=== PATIENT | male | born 2000 | race Two or more races ===

== ENCOUNTER 2024-05-26 12:02 | Emergency (ER) | payer MEDICAID, SELFPAY ==
[2024-05-26 12:04] VITALS: BMI 30.4
[2024-05-26 12:12] VITALS: BP 153/95; PULSE 95; RESP 18; TEMP 36.7; O2SAT 96
--- NOTE | 2024-05-26 12:21 | PD.EDRME ---
Rapid Medical Screening Exam RME Arrival date/time: 05/26/24 12:02 23-year-old male everyday drinker presents to the Emergency Department today stating he has left-sided rib and abdominal pain Chief Complaint: General Adult/Misc Complain Vital signs: Vital Signs Temperature 98.1 F 05/26/24 12:12 Pulse Rate 95 05/26/24 12:12 Respiratory Rate 18 05/26/24 12:12 Blood Pressure 153/95 H 05/26/24 12:12 Pulse Oximetry (%) 96 05/26/24 12:12 Oxygen Delivery Method Room Air 05/26/24 12:12
--- NOTE | 2024-05-26 12:22 | EKG_ITS ---
[facility] Test Date: 2024-05-26 Pat Name: KELLIE WRIGHT Department: Room: - Gender: Male [employer]ation Systems Outreach Specialist: : 2000 Requested By: Bill Hernandez (INDERJIT) Order Number: [id number] Reading MD: Bill Hernandez (EVENT STAFF) Measurements Intervals [place] Rate: 75 P: 35 IN: 143 QRS: 77 QRSD: 85 T: 53 QT: 358 QTc: 401 Interpretive Statements SINUS RHYTHM WITH SINUS ARRHYTHMIA Compared to ECG 07/29/2023 08:21:06 Sinus tachycardia no longer present Short IN interval no longer present /store/S0/[id number].pdf
--- NOTE | 2024-05-26 12:22 | XR_ITS ---
Examination: Upright PA lateral chest 2 views TECHNIQUE: Upright PA lateral chest 2 views Exam date and time: May 26, 2024 1233 hours Comparison March 20, 2023 INDICATIONS: Chest pain today FINDINGS: Normal heart size. Lungs are clear. The osseous structures are intact IMPRESSION: No active disease
--- NOTE | 2024-05-26 12:40 | PD.EDRME ---
Rapid Medical Screening Exam RME Arrival date/time: 05/26/24 12:02 05/26/24 12:02 23-year-old male everyday drinker presents to the Emergency Department today stating he has left-sided rib and abdominal pain Chief Complaint: General Adult/Misc Complain Time Seen by Provider: 05/26/24 13:27 Vital signs: Vital Signs Temperature 98.1 F 05/26/24 12:12 Pulse Rate 95 05/26/24 12:12 Respiratory Rate 18 05/26/24 12:12 Blood Pressure 153/95 H 05/26/24 12:12 Pulse Oximetry (%) 96 05/26/24 12:12 Oxygen Delivery Method Room Air 05/26/24 12:12 RME Narrative: 05/26/24 12:02 23-year-old male everyday drinker presents to the Emergency Department today stating he has left-sided rib and abdominal pain
[2024-05-26 12:49] LABS: Basophils # (Auto) 0.1 Thou/mm3 (0.0-0.2); Basophils % (Auto) 1 % (0-2.5); Eosinophils # (Auto) 0.9 Thou/mm3 (0.0-0.5); Eosinophils % (Auto) 11 % (0-10); Immature Granulocytes % (Auto) 0 % (0-0); Immature Granulocytes Auto 0.03 Thou/mm3 (0.00-0.00); Lymphocytes # (Auto) 1.7 Thou/mm3 (1.0-4.8); Lymphocytes % (Auto) 21 % (10-50); Mean Corpuscular HGB Conc 33.3 g/dl (31.0-37.0); Mean Corpuscular Hemoglobin 28.2 pg (25.0-35.0); Mean Corpuscular Volume 85 fL (80-100); Monocytes # (Auto) 0.6 Thou/mm3 (0.0-0.8); Monocytes % (Auto) 8 % (0-12); Neutrophils # (Auto) 4.9 Thou/mm3 (1.8-7.7); Neutrophils % (Auto) 60 % (37-80); Nucleated Red Blood Cell % 0 /100 WBC (0); Platelet Count 254 Thou/mm3 (140-440); RDW Standard Deviation 44.9 fL (35.1-43.9); Red Blood Count 5.32 Miln/mm3 (4.50-5.90); White Blood Count 8.2 Thou/mm3 (3.8-10.6)
[2024-05-26 13:09] LABS: Alanine Aminotransferase 137 U/L (10-49); Albumin, Serum 5.2 gm/dL (3.5-5.0); Albumin/Globulin Ratio 1.7 (1.2-2.2); Alcohol, Blood Medical 18.2 mg/dL (0-10.0); Alkaline Phosphatase 107 U/L (46-116); Anion Gap 12 (7-16); Aspartate Amino Transferase 81 U/L (0-34); BUN/Creatinine Ratio 7 Ratio (12-20); Bilirubin,Total 0.6 mg/dL (0.3-1.2); Blood Urea Nitrogen 6 mg/dL (9-23); Calcium 9.8 mg/dL (8.3-10.6); Calcium (Corrected) 9.8 mg/dL (8.5-10.1); Carbon Dioxide 23.3 mMol/L (20.0-31.0); Chloride 105 mMol/L (98-107); Creatinine (Component) 0.9 mg/dL (0.6-1.3); Estimated Creatinine Clearance 138.4 mL/min (>60); Globulin 3.1 gm/dL (2.3-3.5); Glucose 119 mg/dL (74-106); Lipase 39 U/L (12-53); Osmolality,Calculated 278 (275-295); Potassium 4.1 mMol/L (3.4-5.1); Sodium 140 mMol/L (136-145); Total Protein 8.3 gm/dL (5.7-8.2); Troponin I < 0.002 ng/mL (0.0-0.045); eGFR > 60 See Note
--- NOTE | 2024-05-26 13:27 | EDNOTE_ITS ---
<Statement entered by Marli Duran MD - 06/02/24 06:24> As co-signing physician, I was present and available for consult prn. I concur with the plan and care as documented by the midlevel provider. ED General RME/HPI General Chief complaint: General Adult/Misc Complain Stated complaint: LEFT RIB PAIN WOSRE WITH INSPIRATION X1WK Time Seen by Provider: 05/26/24 13:27 Arrival date/time: 05/26/24 12:02 23-year-old male everyday drinker presents to the Emergency Department today stating he has left-sided rib and abdominal pain x 1 week Limitations: no limitations RME / HPI RME / HPI narrative: 05/26/24 12:02 23-year-old male everyday drinker presents to the Emergency Department today stating he has left-sided rib and abdominal pain Related Data Previous Rx's ?Medication ?Instructions ?Recorded albuterol sulfate 90 mcg/actuation 2 puff inhalation Q ID PRN 01/29/22 aerosol inhaler shortness of breath or wheez ing #8.5 grams codeine 10 mg-guaifenesin 100 mg/5 5 ml PO Q6H PRN cou gh #118 mL 01/29/22 mL oral liquid (Guaifenesin AC) benzonatate 100 mg capsule 100 mg PO TID #20 caps 08/17 Allergies Allergy/AdvReac Type Severity Reaction Status Date / Time No Known Allergies Allergy Verified 05/26/24 12:06 Review of Systems Review of Systems Systems Reviewed: All systems reviewed, normal except as documented Constitutional Constitutional: Reports system reviewed and no additional complaints, except as documented, Denies fever(s) and Denies headache(s) Eyes Eyes: Reports system reviewed and no additional complaints, except as documented and Denies blurry vision ENT Ears, Nose, Mouth, and Throat: Reports system reviewed and no additional complaints, except as documented, Denies headache(s), Denies nasal congestion and Denies nasal discharge Cardiovascular Cardiovascular: Reports system reviewed and no additional complaints, except as documented, Denies chest pain and Denies dyspnea Respiratory Respiratory: Reports system reviewed and no additional complaints, except as documented, Denies chest congestion, Denies cough and Denies dyspnea Gastrointestinal Gastrointestinal: Reports system reviewed and no additional complaints, except as documented and Denies abdominal pain Musculoskeletal Musculoskeletal: Reports system reviewed and no additional complaints, except as documented and Reports other (Left-sided rib pain) Integumentary/Breasts Skin/Breast: Reports system reviewed and no additional complaints, except as documented and Denies rash Neurologic Neurologic: Reports system reviewed and no additional complaints, except as documented, Reports as per HPI and Denies headache(s) Psychiatric Psychiatric: Reports system reviewed and no additional complaints, except as documented and Reports anxiety Past Medical History Past Medical History NEUROLOGIC: Negative Neurological Disorders CARDIAC: Negative Cardiac Disorders ED Exam General Limitations: Present no limitations General appearance: Present alert and in no apparent distress Head Head exam: Present atraumatic Eye Eye exam: Present normal appearance, PERRL and EOMI ENT ENT exam: Present normal exam, normal oropharynx and mucous membranes moist Neck Neck exam: Present normal inspection, full ROM and trachea midline Chest Chest inspection: Present normal inspection and symmetric chest wall rise Respiratory Respiratory exam: Present normal lung sounds bilaterally Cardiovascular Cardiovascular exam: Present regular rate, normal rhythm and normal heart sounds Abdominal Exam Abdominal exam: Present soft and normal bowel sounds Extremities Exam Extremities exam: Present normal inspection and full ROM Back Exam Back exam: Present normal inspection and full ROM Neurological Exam Neurological exam: Present alert, oriented X3 and CN II-XII intact Psychiatric Psychiatric exam: Present normal affect and normal mood Skin Skin exam: Present warm, dry, intact and normal color Course Quality Measures none Orders Category Date Time Status EKG (ED ONLY) *Do not use* NOW Care 05/26/24 12:22 Completed EKG (ED Only) Stat Exams 05/26/24 12:22 Draft XR chest 2V Stat Exams 05/26/24 12:22 Completed Alcohol, Blood Medical Stat Lab 05/26/24 12:32 Completed CBC Stat Lab 05/26/24 12:32 Completed Comprehensive Metabolic Panel Stat Lab 05/26/24 12:32 Completed Lipase Stat Lab 05/26/24 12:32 Completed Troponin I Stat Lab 05/26/24 12:32 Completed Vital Signs Vital signs: Vital Signs Temperature 98.1 F 05/26/24 12:12 Pulse Rate 95 05/26/24 12:12 Respiratory Rate 18 05/26/24 12:12 Blood Pressure 153/95 H 05/26/24 12:12 Pulse Oximetry (%) 96 05/26/24 12:12 Oxygen Delivery Method Room Air 05/26/24 12:12 O2 saturation 96% room air within normal limits Procedures -ED EKG Interpretation #1: Date of EK05/26/24 Time of EK:26 Rate: 75 Interpretation: Interpreted by me EKG Impression: Normal sinus rhythm, No acute ST-T changes, No ectopy, Sinus arrhythmia, No ischemic changes, Normal QRS and Normal intervals MDM Patient data External records reviewed:: [facility] previous records Clinical information provided by:: patient Social determinants that could affect healthcare access:: alcohol use Patient has the following chronic illnesses:: Alcohol use How is presenting disease/condition affected by chronic disease/condition?: e xacerbated by Evaluation data The following diagnostics were reviewed and interpreted by me:: lab results, radiology exam(s) and EKG tracing(s) Lab and/or radiology exams considered but not ordered:: Labs, radiology, EKG obtained Interpretation Summary: Reviewed by me Medications Medications considered but not ordered:: Given Medication administrations:: Given Consultations Consultation(s) initiated? (list below): No Diagnosis Differential Diagnosis ED Complaint MDM: Anxiety, stress reaction, abdominal pain, alcohol abuse Most likely diagnosis given after review of the tests above:: Abdominal pain, chest wall pain, anxiety Admission Indicated Admission indicated?: not indicated Explain why admission is indicated or not indicated:: No criteria Admission Request Was there a request for admission?: No Disposition Plan Disposition Plan: Discharge Discharge Attestation Discharge Attestation: The patient and all family members were given an opportunity to ask questions and understood the discharge instructions. Discharge instructions specifically effects, indications for sooner follow up or return to the emergency department, and the expected course of current diagnosis. Patient condition: Stable Medical Decision Making [facility] Narrative MDM Narrative: 23-year-old male everyday drinker presents to the Emergency Department today stating he has left-sided rib and abdominal pain x 1 week On exam patient well-appearing patient's not appear ill or toxic patient does appear to be a bit anxious Lab work and imaging obtained no acute emergent findings noted Chest x-ray obtained no acute pneumonic infiltrates no acute pulmonary process EKG Differential Diagnosis Differential Diagnosis: Anxiety, stress reaction, abdominal pain, alcohol abuse Medical Records Medical records reviewed: Yes I reviewed the patient's medical records. Lab Data Lab results reviewed: Yes I reviewed the patient's lab results. 05/26/24 12:32 05/26/24 12:32 Labs: Lab Results 05/26/24 Range/Units 12:32 WBC 8.2 (3.8-10.6) Thou/mm3 RBC 5.32 (4.50-5.90) Miln/mm3 Hgb 15.0 (13.5-16.0) g/dL Hct 45.0 (41.0-53.0) % MCV 85 (80-100) fL MCH 28.2 (25.0-35.0) pg MCHC 33.3 (31.0-37.0) g/dl RDW Std Deviation 44.9 H (35.1-43.9) fL Plt Count 254 (140-440) Thou/mm3 Neut % (Auto) 60 (37-80) % Lymph % (Auto) 21 (10-50) % [place] % (Auto) 8 (0-12) % Eos % (Auto) 11 H (0-10) % Baso % (Auto) 1 (0-2.5) % Neut # (Auto) 4.9 (1.8-7.7) Thou/mm3 Lymph # (Auto) 1.7 (1.0-4.8) Thou/mm3 [place] # (Auto) 0.6 (0.0-0.8) Thou/mm3 Eos # (Auto) 0.9 H (0.0-0.5) Thou/mm3 Baso # (Auto) 0.1 (0.0-0.2) Thou/mm3 Immature Gran # (Auto) 0.03 H (0.00-0.00) Thou/mm3 Absolute Nucleated RBC 0.00 (0.00-0.00) Thou/mm3 Immature Gran % 0 (0-0) % Nucleated RBC % 0 (0) /100 WBC Sodium 140 (136-145) mMol/L Potassium 4.1 (3.4-5.1) mMol/L Chloride 105 (98-107) mMol/L Carbon Dioxide 23.3 (20.0-31.0) mMol/L Anion Gap 12 (7-16) BUN 6 L (9-23) mg/dL Creatinine 0.9 (0.6-1.3) mg/dL Estim Creat Clear Calc 138.4 (>60) mL/min eGFR > 60 (60 - ) See Note BUN/Creatinine Ratio 7 L (12-20) Ratio Glucose 119 H (74-106) mg/dL Calculated Osmolality 278 (275-295) Calcium 9.8 (8.3-10.6) mg/dL Corrected Calcium 9.8 (8.5-10.1) mg/dL Total Bilirubin 0.6 (0.3-1.2) mg/dL AST 81 H (0-34) U/L ALT 137 H (10-49) U/L Alkaline Phosphatase 107 (46-116) U/L Troponin I < 0.002 (0.0-0.045) ng/mL Total Protein 8.3 H (5.7-8.2) gm/dL Albumin 5.2 H (3.5-5.0) gm/dL Globulin 3.1 (2.3-3.5) gm/dL Albumin/Globulin Ratio 1.7 (1.2-2.2) Lipase 39 (12-53) U/L Ethyl Alcohol 18.2 H (0-10.0) mg/dL Radiology Data Radiology results reviewed: Yes I reviewed the patient's radiology results. Discharge Plan Plan Patient Disposition: HOME (Self Care) Disposition Comment: Stable Prescriptions/Referrals Prescriptions/Med Rec: No Action benzonatate 100 mg capsule 100 mg PO TID Qty: 20 0RF albuterol sulfate 90 mcg/actuation HFA aerosol inhaler 2 puff inhalation QID PRN (Reason: shortness of breath or wheezing) Qty: 8.5 0RF codeine-guaifenesin [Guaifenesin AC] 10-100 mg/5 mL liquid 5 ml PO Q6H PRN (Reason: cough) Qty: 118 0RF Referrals: Tootie Cruz MD [Primary Care Provider] - 05/28/24 Problem List Clinical Impression: Alcohol abuse, Chest wall pain Patient/Caregiver Discharge Instructions Education Materials: Alcohol Addiction Additional Instructions: Please follow up with your primary care doctor in the next 24-48hrs for any worsening symptoms return here immediately Print Language: Maltese Stand Alone Forms: Ethel Award Info., Patient Portal Info Letter PA/DINING MANAGER Supervising Physician PA/DINING MANAGER Supervising Physician: Dr. DURAN
== END 2024-05-26 13:33 | disposition home or self-care (01) ==
PROVIDERS: Nurse Practitioner Primary Care; Emergency Provider Emergency Medicine; PCP Internal Medicine
DX: F10.10 Alcohol abuse, uncomplicated (principal); Y90.0 Blood alcohol level of less than 20 mg/100 ml; R07.9 Chest pain, unspecified; I49.8 Other specified cardiac arrhythmias
CPT/HCPCS: 36415; 71046; 80053; 80307; 80320; 81001; 83690; 84484; 85025; 93005; 99283; G0480

== ENCOUNTER 2024-12-11 20:32 | Emergency (ER) | payer MEDICAID, SELFPAY ==
[2024-12-11 20:35] VITALS: BP 150/95; PULSE 114; RESP 20; TEMP 37.5; O2SAT 99; BMI 33.9
--- NOTE | 2024-12-11 20:54 | PD.EDADULT ---
ED General RME/HPI General Chief complaint: General Adult/Misc Complain Stated complaint: elevated hr after ejaculation Time Seen by Provider: 12/11/24 20:48 Arrival date/time: 12/11/24 20:32 RME / HPI RME / HPI narrative: Dr. Grijalva?s Main ED Evaluation: 24yo male with no significant past medical history presents to the ED for palpitations. Patient was masturbating when he felt his heart started racing, reporting his hands and face started feeling numb. Patient admits to drinking heavily and using cocaine last night. Patient denies any chest pain, shortness of breath, nausea, vomiting, dizziness, lightheadedness, or any other associated symptoms. NKA. Related Data Previous Rx's ?Medication ?Instructions ?Recorded albuterol sulfate 90 mcg/actuation 2 puff inhalation QID PRN 01/29/22 aerosol inhaler shortness of breath or wheezing #8.5 grams codeine 10 mg-guaifenesin 100 mg/5 5 ml PO Q6H PRN cough #118 mL 01/29/22 mL oral liquid (Guaifenesin AC) benzonatate 100 mg capsule 100 mg PO TID #20 caps 01/31/22 Allergies Allergy/AdvReac Type Severity Reaction Status Date / Time No Known Allergies Allergy Verified 05/26/24 12:06 Review of Systems Review of Systems Systems Reviewed: All systems reviewed, normal except as documented ED Exam Narrative Physical exam: Generally patient is alert slightly anxious but no obvious distress, heart regular rate and rhythm in the 90s without murmur, lungs clear to auscultation equal bilaterally, abdomen soft bowel sounds present nondistended nontender, skin is warm pale and dry, neurologic exam [place] Coma Scale of 15 without focal motor deficit. No sensory deficits. Course Quality Measures none Vital Signs Vital signs: Vital Signs Temperature 99.5 F 12/11/24 20:35 Pulse Rate 114 H 12/11/24 20:35 Respiratory Rate 20 12/11/24 20:35 Blood Pressure 150/95 H 12/11/24 20:35 Pulse Oximetry (%) 99 12/11/24 20:35 Oxygen Delivery Method Room Air 12/11/24 20:35 Discharge Plan Plan Patient Disposition: HOME (Self Care) Prescriptions/Referrals Prescriptions/Med Rec: No Action benzonatate 100 mg capsule 100 mg PO TID Qty: 20 0RF albuterol sulfate 90 mcg/actuation HFA aerosol inhaler 2 puff inhalation QID PRN (Reason: shortness of breath or wheezing) Qty: 8.5 0RF codeine-guaifenesin [Guaifenesin AC] 10-100 mg/5 mL liquid 5 ml PO Q6H PRN (Reason: cough) Qty: 118 0RF Problem List Clinical Impression: Cocaine use, Alcohol use, Paresthesias Patient/Caregiver Discharge Instructions Additional Instructions: Avoid cocaine and alcohol in the future. Print Language: Lebanese Stand Alone Forms: Ethel Award Info., Patient Portal Info Letter MDM Narrative MDM hospital course (for use when minimal MDM required): Scribe Attestation: 12/11/24 - Steffi Walls am scribing for and in the presence of Dr. Grijalva. EKG done at 8:34 PM shows sinus tachycardia at 117 without ischemic change or ectopy. Patient did do cocaine approximately 24 hours prior to my evaluation. He also drank alcohol. I believe it is the combination of the external stimulation with the cocaine that made the patient feel paresthesias. I do not believe this patient to have a subarachnoid hemorrhage as the patient denies headache. I do not believe this patient have had a stroke. Patient was counseled on the need to stop cocaine and alcohol. Clinical Information Provided by: patient Medical Records reviewed [facility] (Per chart review, patient was seen here on 05/26/24 for alcohol abuse.) Meds/Rx considered, not ordered None Labs/Rad/Tests considered, not ordered None Chronic Illness/Social Conditions which may negatively complicate care or outcome(s)-explain: None or not applicable Labs Labs: none Imaging Imaging interpretation: none Medication Administration(s) none Diagnosis Differential Diagnosis ED Complaint MDM: See MDM.
[2024-12-11 21:20] VITALS: BP 133/97; PULSE 97; RESP 18; TEMP 36.8; O2SAT 97
== END 2024-12-11 21:21 | disposition home or self-care (01) ==
LOC: SERX 21:14
PROVIDERS: Emergency Provider Emergency Medicine
DX: F10.10 Alcohol abuse, uncomplicated (principal); F14.90 Cocaine use, unspecified, uncomplicated
CPT/HCPCS: 99283